=== PATIENT | female | born 1985 | race Caucasian/White ===

== ENCOUNTER → 2021-01-11 | Outpatient (CLI) | payer OTHER ==
[~2021-01-11] MED LIST: ASPIRIN CHEWABL81 MG PO; FOLIC ACID 1 MG1 MG PO; ZANTAC150 MG PO; ZOFRAN4 MG PO
[2021-01-11 12:37] LABS: HEMOGLOBIN 11.8 gm/dl (12.3-15.3); RED BLOOD COUNT 3.92 M/UL (4.00-5.10); WHITE BLOOD COUNT 7.7 K/UL (4.5-11.0)
== END ==
LOC: LAB 10:28
PROVIDERS: Internal Medicine Hematology & Oncology
DX: D68.2 Hereditary deficiency of other clotting factors (principal)
CPT/HCPCS: 36415; 85025; 85379; 85384; 85610; 85730